=== PATIENT | female | born 1970 | race Two or more races ===

== ENCOUNTER → 2024-07-24 08:32 | Outpatient (REF) | payer OTHER, SELFPAY | LOC: WDC 08:32 | PROVIDERS: ATTENDING PHYSICIAN Obstetrics & Gynecology; FAMILY PHYSICIAN Internal Medicine | DX: Z12.31 Encounter for screening mammogram for malignant neoplasm of breast (principal) | CPT/HCPCS: 77063; 77067 ==

== ENCOUNTER → 2025-08-30 12:46 | Outpatient (REF) | payer OTHER, SELFPAY | LOC: WDC 12:46 | PROVIDERS: ATTENDING PHYSICIAN Internal Medicine | DX: Z12.39 Encounter for other screening for malignant neoplasm of breast (principal); Z12.31 Encounter for screening mammogram for malignant neoplasm of breast | CPT/HCPCS: 77063; 77067 ==

== ENCOUNTER 2025-08-31 11:39 | Emergency (ER) | payer OTHER, SELFPAY ==
[2025-08-31 11:43] VITALS: BP 149/89
[2025-08-31 12:01] LABS: Hematocrit 40.8 % (37.0-47.0); Hemoglobin 13.9 g/dL (12.0-16.0); Mean Corp Hgb Conc. 34.1 g/dL (33.0-37.0); Mean Corpuscular Volume 88.9 fL (81.0-99.0); Nucleated Red Blood Cells % 0 %; Platelet Count 228 10^3/uL (130-400); Red Cell Dist. Width 14.0 % (11.5-14.5)
[2025-08-31 12:12] LABS: INR 0.99; PT 13.4 Sec (11.4-14.6)
[2025-08-31 12:41] LABS: ALT (SGPT) 17 U/L (0-35); AST (SGOT) 18 U/L (14-36); Albumin 4.4 g/dl (3.5-5.0); Alkaline Phosphatase 51 U/L (38-126); Blood Urea Nitrogen 10 mg/dl (7-17); Calcium 9.0 mg/dl (8.4-10.2); Carbon Dioxide 24 mmol/L (22-30); Chloride 105 mmol/L (98-107); Glucose 124 mg/dl (70-99); Potassium 4.1 mmol/L (3.5-5.1); Sodium 137 mmol/L (135-145); Total Protein 7.5 g/dl (6.3-8.2); eGFR > 60.00
--- NOTE | 2025-08-31 12:57 | ED.GENMED ---
History of Present Illness
General
Chief Complaint: Vaginal Bleeding
Source: patient
Exam Limitations: none
Time Seen by Provider: 08/31/25 12:53
Nursing documentation reviewed up to this point in time: agreed with
History of Present Illness
History of Present Illness:
54-year-old female with no significant past medical history states she has always had heavy periods for the past 3 years, she is perimenopausal, she states for the last 3 weeks she has had heavy vaginal bleeding with clots that is more than her
usual bleeding. She does get discomfort in the right lower quadrant at times but she states this is chronically intermittent and is the same as the pain she had previously when she was diagnosed with a uterine fibroid. She denies fever or chills.
She states when she woke up this morning and got out of bed 7 AM she had heavy vaginal bleeding with clots. Since then she states she used 3 tampons since.
Denies N/V/D/C. She denies feeling dizzy or lightheaded. She denies chest pain or shortness of breath.
Past History
Past History
ED Past Medical History: Other (Heavy periods past 3 years)
ED Past Surgical History:
Social History
Tobacco: Non-smoker
Alcohol: None
Personal: Single
Living: with family
Employment: Not employed
Review of Systems
Review of Systems
Allergies reviewed?: Yes
All Other Systems: ROS reviewed and negative except as documented in HPI and ROS
Constitutional: Denies fever or fatigue
Respiratory: Denies trouble breathing
Cardiac: Denies chest pain or syncope
ABD/GI: Denies abdominal pain
: Reports bleeding (Heavy vaginal bleeding past 3 days)
Musculoskeletal: Reports no symptoms
Skin: Reports no symptoms
Neurological: Reports no symptoms
Phy Exam
Physical Exam
Physical Exam:
GENERAL: No acute distress. A&Ox3.
CONSTITUTIONAL: Afebrile.
EYES: clear, conjunctivae normal
ENMT: moist mucus membranes, Pharynx nl
RESPIRATORY: Regular respirations, nonlabored, lungs clear.
CARDIOVASCULAR: Regular rate and rhythm, no murmurs, no rubs.
GI: Soft, nontender, normal BS
MUSCULOSKELETAL: Moves with ease. Well perfused.
SKIN: Warm, dry, pink
PSYCH: Normal mood and affect. Well kept, interactive and appropriate
NEUROLOGIC: Awake, alert and oriented. No focal neurological deficits
Course
Orders/Labs/Results
Orders:
Orders
08/31/25 11:52
Type+Screen Urgent
Beta HCG Quantitative Urgent
Comment: ADD ON
Complete Blood Count/With Diff Urgent
Comprehensive Metabolic Panel Urgent
Prothrombin Time Urgent
08/31/25 12:56
US Pelvis W Transvag Combined Urgent
Comment:
Reason For Exam: heavy bleeding w clots
08/31/25 12:57
Add On- LAB Urgent
Tests Added?: beta hcg quantitative
Abnormal Lab Results
08/31/25
11:52
MPV 11.2 H fL
(7.4-10.4)
Absolute Neuts (auto) 7.2 H 10^3/uL
(1.4-6.5)
Neutrophils % 75.9 H %
(42.2-75.2)
Lymphocytes % 18.3 L %
(20.5-51.1)
Glucose 124 H mg/dl
(70-99)
08/31/25 11:52
08/31/25 11:52
Vital Signs
Initial and Last Documented VS:
Initial Vital Signs
Temp Pulse Resp BP Pulse Ox
98.5 F 95 16 149/89 99
08/31/25 11:43 08/31/25 11:43 08/31/25 11:43 08/31/25 11:43 08/31/25 11:43
Last Documented Vital Signs
Temp Pulse Resp BP Pulse Ox
98.1 F 80 16 156/88 100
08/31/25 16:26 08/31/25 16:26 08/31/25 16:26 08/31/25 16:26 08/31/25 16:26
MDM/Problems Addressed
Differential Diagnosis Includes:
Uterine fibroid,
MDM/Problems Addressed:
54-year-old female with no significant past medical history states she has always had heavy periods for the past 3 years, she is perimenopausal, she states for the last 3 weeks she has had heavy vaginal bleeding with clots that is more than her
usual bleeding. She does get discomfort in the right lower quadrant at times but she states this is chronically intermittent and is the same as the pain she had previously when she was diagnosed with a uterine fibroid. She denies fever or chills.
She states when she woke up this morning and got out of bed 7 AM she had heavy vaginal bleeding with clots. Since then she states she used 3 tampons since.
Denies N/V/D/C. She denies feeling dizzy or lightheaded. She denies chest pain or shortness of breath.
CBC normal
CMP normal
Beta HCG normal <2.39
3:40 p.m.
Pelvic US radiology report read:
IMPRESSION: There is a rounded intermediate echogenicity mass extending into the endometrium, similar appearance to previous pelvic ultrasound of August 16, 2023. This most likely represents a submucosal fibroid.
If further imaging evaluation is desired, consideration for MRI of the pelvis without and with contrast if there are no contraindications.
Small anterior uterine fibroid.
The right ovary is not visualized. Normal appearance of the left ovary.
Consulted MANAGER OF ADMINISTRATION Dr. Calix who reviewed US result, agrees patient okay for discharge to follow-up as scheduled with Dr. Scott next week. Pt has had no significant bleeding since arrival, Changed pad once.
*Pulse Oximetry
SaO2: 99
Oxygen Mode of Delivery: Room air
Patient hypoxic: not evaluated
*Critical Care Note
Total Time (30-74mins, 75-104mins- exclusive of procedures): Not Applicable
ED Attending Note
-
Portions of this chart may have been created with voice recognition software.� Occasional wrong word or��sound alike� substitutions may have occurred due to the inherent limitations of voice recognition software.
Discharge Plan
Departure
Patient Disposition: Home (Routine Discharge)
Date of Disposition: 08/31/25
Time of Disposition: 16:04
Patient with high blood pressure during this ER visit?: No
Condition: Good
Discharge Problem:
Episode of heavy vaginal bleeding
Instructions: Heavy Periods (DC)
Prescriptions:
No Action
Tablet
Fish Oil
Referrals:
Radha Mendez MD [Family Provider, Internal Medicine]
Jamee Scott MD [Active, Gynecology] - Keep scheduled appt
Activity Restrictions/Additional Instructions:
As we discussed, nothing worrisome in your exam or blood work here today. No dangerous amount of bleeding
Keep your appointment with Dr. rPado next week.
Interventions
Interventions:
*Risk Screen - Suicide Last Done: 08/31/25 11:46
*General Assessment Last Done: 08/31/25 13:22
*Neglect/Abuse Screening Last Done: 08/31/25 11:46
*ED- Fall Risk Assessment Last Done: 08/31/25 13:18
*ED COVID-19 Vaccine History Last Done: 08/31/25 13:20
*ED Influenza Vaccine History Last Done: 08/31/25 13:20
*Nursing Disposition Last Done: 08/31/25 16:30
ED-Female Genitourinary Assessment Last Done: 08/31/25 13:19
Discharge Date and Time
Discharge Date/Time: 08/31/25 16:31
Print Language: DANISH
[2025-08-31 13:15] VITALS: BP 140/85
[2025-08-31 13:17] VITALS: BMI 30.6
[2025-08-31 13:39] LABS: Beta HCG Quantitative < 2.39 mIU/ml
[2025-08-31 15:10] VITALS: BP 118/74
[2025-08-31 16:26] VITALS: BP 156/88
== END 2025-08-31 16:31 | disposition home or self-care (01) ==
LOC: EMR 11:39
PROVIDERS: Emergency Medicine; EMERGENCY PHYSICIAN Emergency Medicine; FAMILY PHYSICIAN Internal Medicine
DX: N92.0 Excessive and frequent menstruation with regular cycle (principal); D25.9 Leiomyoma of uterus, unspecified
CPT/HCPCS: 99284; 76830; 76856; 80053; 84702; 85025; 85610; 86850; 86900; 86901